=== PATIENT | female | born 1990 | race Caucasian/White ===

== ENCOUNTER 2017-10-28 09:54 | Emergency (ER) | payer OTHER, SELFPAY ==
[2017-10-28] MEDS ORDERED: HYDROcodone/Acetaminophen 10/325 mg Tablet ONE (11:22)
--- NOTE | 2017-10-28 12:53 | RAD ---
RIGHT KNEE FOUR VIEWS: HISTORY: A 27-year-old female with a history of right knee pain. FINDINGS/IMPRESSION: No fracture, dislocation, or other significant acute osseous abnormality. POS: [facility]
== END 2017-10-28 11:51 | disposition home or self-care (01) ==
LOC: ERS 09:54
DX: S80.01XA Contusion of right knee, initial encounter (principal); Z71.6 Tobacco abuse counseling; F17.220 Nicotine dependence, chewing tobacco, uncomplicated; V43.52XA Car driver injured in collision with other type car in traffic accident, initial encounter
CPT/HCPCS: 99406